=== PATIENT | female | born 1980 | race Hispanic/Latino ===

== ENCOUNTER 2017-04-28 09:15 | Observation (INO) | payer MEDICAID, OTHER ==
[2017-04-28 09:32] VITALS: TEMP 98; O2SAT 100
[2017-04-28] MEDS ORDERED: Iohexol 240 (50 ml) PO ONE (10:02)
[2017-04-28] MEDS ORDERED: Iohexol 240 (50 ml) ONE (10:11)
[2017-04-28] MEDS ORDERED: HYDROmorphone 0.5 mg/0.5 ml ISec ONE ×2 (10:29→11:54)
[2017-04-28 10:52] LABS: BASO # 0.1 K/uL (0.0-0.2); BASO % 0.9 % (0.0-2.0); EOS # 0.1 K/uL (0.0-0.7); HEMATOCRIT 39.9 % (34.0-47.0); LYMPH # 2.5 K/uL (1.0-4.3); LYMPH % 28.1 % (20.0-40.0); MEAN CELL VOLUME 84.7 fl (81.0-99.0); MEAN CORPUSCULAR HEMOGLOBIN 28.2 pg (27.0-31.0); MEAN CORPUSCULAR HGB CONC 33.3 g/dL (33.0-37.0); MEAN PLATELET VOLUME 8.8 fl (7.2-11.7); MONO # 0.6 K/uL (0.0-0.8); MONO % 6.3 % (0.0-10.0); NEUT # 5.8 K/uL (1.8-7.0); NEUT % 63.7 % (50.0-75.0); RED CELL DISTRIBUTION WIDTH 14.1 % (11.5-14.5); WHITE BLOOD COUNT 9.1 K/uL (4.8-10.8)
[2017-04-28 10:59] LABS: RBC URINE 2 /hpf (0-3); URINE BILIRUBIN NEGATIVE (NEGATIVE); URINE BLOOD NEGATIVE (NEGATIVE); URINE COLOR YELLOW (YELLOW); URINE GLUCOSE (UA) NEG (Normal); URINE KETONE NEGATIVE (NEGATIVE); URINE LEUKOCYTE ESTERASE NEG Leu/uL (Negative); URINE PROTEIN NEGATIVE (NEGATIVE); URINE UROBILINOGEN 0.2-1.0 mg/dL (0.2-1.0); WBC URINE 1 /hpf (0-5)
--- NOTE | 2017-04-28 11:01 | ED PDOC ---
HPI: Abdomen <Deepthi Dugan - Last Filed: 04/28/17 14:17> Chief Complaint (Provider): Abdominal pain History Per: Patient History/Exam Limitations: no limitations Onset/Duration Of Symptoms: Days (x2 weeks), Worse Since (x3 days) Quality Of Discomfort: Gas Associated Symptoms: Fever (subjective), Vomiting (persistent), Constipation. denies: Urinary Symptoms <Savanah Wilson - Last Filed: 04/28/17 15:35> Time Seen by Provider: 04/28/17 09:20 Chief Complaint (Nursing): Abdominal Pain Additional Complaint(s): Netta Ozuna is a 37 year old female, with a past medical history of hypertension, anxiety and depression, who presents to the emergency department complaining of abdominal bloating associated with gas, subjective fever, and persistent vomiting onset for 2 weeks. Patient reports being constipated and states symptoms have worsen with an abdominal pain radiating down the left leg in the last 3 days. She denies any urinary symptoms and reports morphine doesn' t work and needs something stronger for the pain before being examined. PMD: Zachariah Davis (Savanah Wilson) Past Medical History <Deepthi Dugan A - Last Filed: 04/28/17 14:17> Reviewed: Historical Data, Nursing Documentation, Vital Signs - Medical History PMH: Anxiety, Back Problems, Bipolar Disorder, Depression, Gastritis, Gall Bladder Disease (CHOLECYSTECTOMY), Hiatal Hernia, HTN (NOT ON MEDICATION), Sleep Apnea Denies: Diabetes, Hepatitis, HIV, Chronic Kidney Disease, Seizures, Sexually Transmitted Disease - Surgical History Surgical History: Cholecystectomy (2007), Endoscopy (6 MONTHS AGO) - Family History Family History: States: Unknown Family Hx - Social History Current smoker - smoking cessation education provided: Yes (Light smoker <10 cigarettes daily) Alcohol: Occasional (weekends) Drugs: Denies - Immunization History Hx Tetanus Toxoid Vaccination: No Hx Influenza Vaccination: No Hx Pneumococcal Vaccination: No <KatieSavanah Torres - Last Filed: 04/28/17 15:35> Vital Signs: Last Vital Signs Temp 98 F 04/28/17 09:28 Pulse 73 04/28/17 14:26 Resp 18 04/28/17 14:26 BP 124/84 04/28/17 14:26 Pulse Ox 100 04/28/17 14:26 - Home Medications Home Medications: Ambulatory Orders Medication Instructions Recorded ARIPiprazole [Abilify] 5 mg PO DAILY 06/22/15 Alprazolam [Xanax] 1 mg PO TID 06/28/15 Buspirone HCl [Buspirone HCl] 10 mg PO BID 06/28/15 Famotidine [Pepcid] 20 mg PO BID #20 tab 08/29/16 Naproxen [Naprosyn] 500 mg PO BID #20 tab 08/29/16 metroNIDAZOLE [Flagyl] 500 mg PO BID #14 tab 08/29/16 oxyCODONE/Acetaminophen [Percocet 1 tab PO QID PRN #15 tab 08/29/16 5/325 mg Tab] traMADol [Ultram] 50 mg PO Q8 #10 tab 10/22/16 Sulfamethoxazole/Trimethoprim 1 tab PO BID #14 tab 04/28/17 [Bactrim DS 800 mg-160 mg] - Allergies Allergies/Adverse Reactions: Allergies Allergy/AdvReac Type Severity Reaction Status Date / Time No Known Allergies Allergy Verified 04/28/17 09:28 Review of Systems ROS Statement: Except As Marked, All Systems Reviewed And Found Negative Constitutional: Positive for: Fever Gastrointestinal: Positive for: Vomiting, Abdominal Pain (radiating down to left leg), Constipation Genitourinary Female: Negative for: Dysuria, Frequency, Hematuria <Savanah Wilson Y - Last Filed: 04/28/17 15:35> Physical Exam - Reviewed Nursing Documentation Reviewed: Yes Vital Signs Reviewed: Yes - Physical Exam Appears: Positive for: Well, Non-toxic, No Acute Distress Head Exam: Positive for: ATRAUMATIC, NORMAL INSPECTION, NORMOCEPHALIC Skin: Positive for: Normal Color, Warm, Rash (abrasions on buttock, could be bug bites that were scratched or early MRSA? no cellulitis and no fluctuance/ abscess) Eye Exam: Positive for: EOMI, Normal appearance, PERRL ENT: Positive for: Normal ENT Inspection Neck: Positive for: Normal, Painless ROM, Supple Cardiovascular/Chest: Positive for: Regular Rate, Rhythm. Negative for: Murmur Respiratory: Positive for: Normal Breath Sounds. Negative for: Respiratory Distress Gastrointestinal/Abdominal: Positive for: Normal Exam, Bowel Sounds, Soft. Negative for: Tenderness, Mass, Distended, Guarding, Rebound, Hernia, Asicites Back: Positive for: Normal Inspection Extremity: Positive for: Normal ROM Neurologic/Psych: Positive for: Alert, Oriented <Savanah Wilson Y - Last Filed: 04/28/17 15:35> - Laboratory Results Result Diagrams: 04/28/17 10:20 04/28/17 11:43 <Deepthi Dugan - Last Filed: 04/28/17 14:17> - Laboratory Results Result Diagrams: 04/28/17 10:20 04/28/17 11:43 - ECG O2 Sat by Pulse Oximetry: 100 (RA) Pulse Ox Interpretation: Normal <Savanah Wilson Y - Last Filed: 04/28/17 15:35> Medical Decision Making <Deepthi Dugan - Last Filed: 04/28/17 14:17> <Savanah Wilson Y - Last Filed: 04/28/17 15:35> Medical Decision Makin Abdominal/Pelvis CT FINDINGS: LOWER THORAX: Unremarkable. LIVER: Mild hepatomegaly. No mass. Smooth contour. Normal attenuation. GALLBLADDER AND BILE DUCTS: Status post cholecystectomy. PANCREAS: Unremarkable. No gross lesion or ductal dilatation. SPLEEN: Unremarkable. ADRENALS: Unremarkable. No mass. KIDNEYS AND URETERS: Right upper pole 9 mm cortical cyst, unchanged from prior. No other renal mass. No calculus or hydronephrosis. VASCULATURE: Unremarkable. No aortic aneurysm. (Deepthi Dugan) Initial Impression: Initial Plan: --Abd Pelvis PO & IV Contrast [CT] --Beta-HCG, quantitative --Comp Metabolic panel --CBC w/ differential --Dilaudid 1mg IVP --Omnipaque 240 50 ml --Morphine 4 mg IV --Urine C&S --Urinalysis --reevaluation 1100 -Patient's test negative 1200 -Minimal abdominal tenderness diffuse. Buttocks area has multiple small excoriated bug bites. 1357 Abdominal/Pelvis CT FINDINGS: LOWER THORAX: Unremarkable. LIVER: Mild hepatomegaly. No mass. Smooth contour. Normal attenuation. GALLBLADDER AND BILE DUCTS: Status post cholecystectomy. PANCREAS: Unremarkable. No gross lesion or ductal dilatation. SPLEEN: Unremarkable. ADRENALS: Unremarkable. No mass. KIDNEYS AND URETERS: Right upper pole 9 mm cortical cyst, unchanged from prior. No other renal mass. No calculus or hydronephrosis. VASCULATURE: Unremarkable. No aortic aneurysm. BOWEL: Unremarkable. No obstruction. No gross mural thickening. APPENDIX: Normal appendix. PERITONEUM: Unremarkable. No free fluid. No free air. LYMPH NODES: Unremarkable. No enlarged lymph nodes. BLADDER: Nondistended REPRODUCTIVE: Normal uterus. BONES: No acute fracture. OTHER FINDINGS: None. IMPRESSION: No acute abnormality. Mild hepatomegaly. Status post cholecystectomy. Small stable right upper pole renal cortical cyst. Otherwise unremarkable. 1400 -Urine and bloodwork negative pt appears comfortable - patient tolerating PO and is ready for dischargew ith bactrim rx for possible early mrsa infection on buttock (see skin exam under PE) Scribe Attestation: Documented by Markel Toro, acting as a scribe for Savanah Wilson MD Provider Scribe Attestation: All medical record entries made by the Scribe were at my direction and personally dictated by me. I have reviewed the chart and agree that the record accurately reflects my personal performance of the history, physical exam, medical decision making, and the department course for this patient. I have also personally directed, reviewed, and agree with the discharge instructions and disposition. (Savanah Wilson) ED OBSERVATION <Deepthi Dugan - Last Filed: 04/28/17 14:17> Date of observation admission: 04/28/17 Time of observation admission: 10:04 <Savanah Wilson - Last Filed: 04/28/17 15:35> - Observation admission statement Patient is being placed in observation because:: Need for serial examinations to determine stability for disposition (Savanah Wilson) - Goals of Observation Goals of observation are:: Resolution of symptoms (Savanah Wilson) - Progress Note Progress Note: 04/28/17 11:10 Patient is awake, vitals are stable, but symptoms persist 04/28/17 12:40 Patient is awake, vitals are stable, but symptoms persist (Savanah Wilson) Disposition <Deepthi Dugan - Last Filed: 04/28/17 14:17> - Patient ED Disposition Is Patient to be Admitted: No Counseled Patient/Family Regarding: Studies Performed, Diagnosis, Need For Followup - Disposition Disposition: Routine/Home Disposition Time: 14:35 <Savanah Wilson - Last Filed: 04/28/17 15:35> - Clinical Impression Clinical Impression: Abdominal pain in female - Disposition Condition: IMPROVED
[2017-04-28] MEDS ORDERED: HYDROmorphone 0.5 mg/0.5 ml ISec IVP STA (11:46)
[2017-04-28 12:09] LABS: ALB/GLOB RATIO 1.2 (1.0-2.1); ALKALINE PHOSPHATASE 73 U/L (38-126); ALT/SGPT 31 U/L (9-52); AST/SGOT 30 U/L (14-36); BILIRUBIN,TOTAL 0.6 mg/dl (0.2-1.3); BLOOD UREA NITROGEN 5 mg/dl (7-17); CALCIUM 9.6 mg/dL (8.4-10.2); CARBON DIOXIDE 26 mmol/L (22-30); CHLORIDE 100 mmol/L (98-107); GFR AFRICAN-AMERICAN > 60; GLUCOSE,RANDOM 72 mg/dL (65-105); POTASSIUM 4.2 MMOL/L (3.6-5.0); SODIUM 139 mmol/l (132-148); TOTAL PROTEIN 8.3 G/DL (6.3-8.2)
[2017-04-28] MEDS ORDERED: Sodium Chloride 0.9% 50 ML IV ONE (13:10)
[2017-04-28] MEDS ORDERED: Iohexol 300 100 ML IJ ONE (13:10)
--- NOTE | 2017-04-28 13:59 | CT ---
PROCEDURE: CT Abdomen and Pelvis with contrast HISTORY: abdominal pain COMPARISON: 02/07/2016 TECHNIQUE: Contrast dose: 95 mL Omnipaque 300 Radiation dose: Total exam DLP = 1063.70 mGy-cm. This CT exam was performed using one or more of the following dose reduction techniques: Automated exposure control, adjustment of the mA and/or kV according to patient size, and/or use of iterative reconstruction technique. FINDINGS: LOWER THORAX: Unremarkable. LIVER: Mild hepatomegaly. No mass. Smooth contour. Normal attenuation. GALLBLADDER AND BILE DUCTS: Status post cholecystectomy. PANCREAS: Unremarkable. No gross lesion or ductal dilatation. SPLEEN: Unremarkable. ADRENALS: Unremarkable. No mass. KIDNEYS AND URETERS: Right upper pole 9 mm cortical cyst, unchanged from prior. No other renal mass. No calculus or hydronephrosis. VASCULATURE: Unremarkable. No aortic aneurysm. BOWEL: Unremarkable. No obstruction. No gross mural thickening. APPENDIX: Normal appendix. PERITONEUM: Unremarkable. No free fluid. No free air. LYMPH NODES: Unremarkable. No enlarged lymph nodes. BLADDER: Nondistended REPRODUCTIVE: Normal uterus. BONES: No acute fracture. OTHER FINDINGS: None. IMPRESSION: No acute abnormality. Mild hepatomegaly. Status post cholecystectomy. Small stable right upper pole renal cortical cyst. Otherwise unremarkable.
[2017-04-28 14:27] VITALS: BP 124/84; PULSE 73; RESP 18
== END 2017-04-28 14:32 | disposition home or self-care (01) ==
LOC: H.ER 09:15 → H.EROBSV 10:04
PROVIDERS: ADMIT Emergency Medicine; ATTEND Emergency Medicine
DX: R10.9 Unspecified abdominal pain (principal); F17.210 Nicotine dependence, cigarettes, uncomplicated; F31.9 Bipolar disorder, unspecified; K29.70 Gastritis, unspecified, without bleeding; K44.9 Diaphragmatic hernia without obstruction or gangrene; I10 Essential (primary) hypertension; F32.9 Major depressive disorder, single episode, unspecified; F41.9 Anxiety disorder, unspecified; K59.00 Constipation, unspecified; Z79.899 Other long term (current) drug therapy; Z90.49 Acquired absence of other specified parts of digestive tract; R14.0 Abdominal distension (gaseous); R50.9 Fever, unspecified; R16.0 Hepatomegaly, not elsewhere classified
CPT/HCPCS: 36415; 74177; 80053; 81003; 81025; 84702; 85025; 87086; 96374; 96376; 99284; G0378; J1170; Q9966; Q9967

== ENCOUNTER 2017-06-15 15:33 | Emergency (ER) | payer OTHER ==
[2017-06-15 15:52] VITALS: RESP 18
[2017-06-15] MEDS ORDERED: Sodium Chloride 0.9% 1,000 ML IV STA (16:10)
--- NOTE | 2017-06-15 16:12 | ED PDOC ---
HPI: Abdomen Time Seen by Provider: 06/15/17 15:56 Chief Complaint (Nursing): GI Problem Chief Complaint (Provider): nausea/vomiting History Per: Patient Additional Complaint(s): 37 yo female, presents to ED with c/o vomiting, diarrhea, tactile fever, throat pain, bodyaches x 5 days. no medications taken to alleviate symptoms thus far. Past Medical History Reviewed: Nursing Documentation, Vital Signs Vital Signs: Last Vital Signs Temp 97.5 F L 06/15/17 15:49 Pulse 87 06/15/17 15:49 Resp 18 06/15/17 15:49 BP 134/89 06/15/17 15:49 Pulse Ox 98 06/15/17 18:57 - Medical History PMH: Anxiety, Back Problems, Bipolar Disorder, Depression, Gastritis, Gall Bladder Disease (CHOLECYSTECTOMY), Hiatal Hernia, HTN (NOT ON MEDICATION), Sleep Apnea Denies: Diabetes, Hepatitis, HIV, Chronic Kidney Disease, Seizures, Sexually Transmitted Disease - Surgical History Surgical History: Cholecystectomy (2007), Endoscopy (6 MONTHS AGO) - Family History Family History: States: Unknown Family Hx - Living Arrangements Living Arrangements: With Family - Social History Current smoker - smoking cessation education provided: No Alcohol: Social Drugs: Denies - Immunization History Hx Tetanus Toxoid Vaccination: No Hx Influenza Vaccination: No Hx Pneumococcal Vaccination: No - Home Medications Home Medications: Ambulatory Orders Medication Instructions Recorded ARIPiprazole [Abilify] 5 mg PO DAILY 06/22/15 Alprazolam [Xanax] 1 mg PO TID 06/28/15 Buspirone HCl [Buspirone HCl] 10 mg PO BID 06/28/15 Famotidine [Pepcid] 20 mg PO BID #20 tab 08/29/16 Naproxen [Naprosyn] 500 mg PO BID #20 tab 08/29/16 metroNIDAZOLE [Flagyl] 500 mg PO BID #14 tab 08/29/16 oxyCODONE/Acetaminophen [Percocet 1 tab PO QID PRN #15 tab 08/29/16 5/325 mg Tab] traMADol [Ultram] 50 mg PO Q8 #10 tab 10/22/16 Sulfamethoxazole/Trimethoprim 1 tab PO BID #14 tab 04/28/17 [Bactrim DS 800 mg-160 mg] Ibuprofen [Motrin] 600 mg PO Q6 #20 tab 06/15/17 Ondansetron ODT [Zofran ODT] 4 mg PO Q6 PRN #10 odt 06/15/17 - Allergies Allergies/Adverse Reactions: Allergies Allergy/AdvReac Type Severity Reaction Status Date / Time No Known Allergies Allergy Verified 06/15/17 15:48 Review of Systems ROS Statement: Except As Marked, All Systems Reviewed And Found Negative Constitutional: Positive for: Weakness Gastrointestinal: Positive for: Nausea, Vomiting, Diarrhea Physical Exam - Reviewed Nursing Documentation Reviewed: Yes Vital Signs Reviewed: Yes - Physical Exam Appears: Positive for: Well, Non-toxic, No Acute Distress Head Exam: Positive for: ATRAUMATIC, NORMAL INSPECTION, NORMOCEPHALIC Skin: Positive for: Normal Color, Warm, DRY Eye Exam: Positive for: EOMI, Normal appearance, PERRL ENT: Positive for: Normal ENT Inspection Neck: Positive for: Normal, Painless ROM Cardiovascular/Chest: Positive for: Regular Rate, Rhythm Respiratory: Positive for: CNT, Normal Breath Sounds Gastrointestinal/Abdominal: Positive for: Normal Exam, Bowel Sounds, Soft Back: Positive for: Normal Inspection Extremity: Positive for: Normal ROM Neurologic/Psych: Positive for: Alert, Oriented - Laboratory Results Result Diagrams: 06/15/17 17:06 06/15/17 17:06 - ECG O2 Sat by Pulse Oximetry: 98 Medical Decision Making Medical Decision Making: IV access established and treatment initiated with IVF, Pepcid, Zofran Diagnostics ordered Labs resulted and reviewed with Pt who demonstrated full understanding Pt reports feeling well on re-eval. Stable for discharge home at this time Disposition - Clinical Impression Clinical Impression: Viral syndrome - Patient ED Disposition Is Patient to be Admitted: No - Disposition Disposition: Routine/Home Disposition Time: 18:59 Condition: STABLE Prescriptions: Ibuprofen [Motrin] 600 mg PO Q6 #20 tab Ondansetron ODT [Zofran ODT] 4 mg PO Q6 PRN #10 odt PRN Reason: Nausea/Vomiting Instructions: Viral Syndrome (ED) Forms: [employer] (Persian), [facility] ED School/Work Excuse
[2017-06-15 17:20] LABS: BASO # 0.1 K/uL (0.0-0.2); BASO % 0.7 % (0.0-2.0); EOS # 0.1 K/uL (0.0-0.7); EOS % 0.9 % (0.0-4.0); HEMATOCRIT 39.9 % (34.0-47.0); LYMPH # 2.2 K/uL (1.0-4.3); LYMPH % 26.8 % (20.0-40.0); MEAN CELL VOLUME 86.1 fl (81.0-99.0); MEAN CORPUSCULAR HEMOGLOBIN 29.1 pg (27.0-31.0); MEAN CORPUSCULAR HGB CONC 33.8 g/dL (33.0-37.0); MONO # 0.8 K/uL (0.0-0.8); MONO % 10.2 % (0.0-10.0); NEUT % 61.4 % (50.0-75.0); NRBC % 0.1 % (0.0-0.0); RED CELL DISTRIBUTION WIDTH 14.5 % (11.5-14.5); WHITE BLOOD COUNT 8.1 K/uL (4.8-10.8)
[2017-06-15 17:21] LABS: ALB/GLOB RATIO 1.2 (1.0-2.1); ALKALINE PHOSPHATASE 41 U/L (38-126); ALT/SGPT 28 U/L (9-52); AMYLASE 85 U/L (30-110); AST/SGOT 33 U/L (14-36); BILIRUBIN,TOTAL 0.4 mg/dl (0.2-1.3); BLOOD UREA NITROGEN 12 mg/dl (7-17); CALCIUM 9.5 mg/dL (8.4-10.2); CARBON DIOXIDE 26 mmol/L (22-30); CHLORIDE 104 mmol/L (98-107); GFR AFRICAN-AMERICAN > 60; GLUCOSE,RANDOM 98 mg/dL (65-105); LIPASE 234 U/L (23-300); SODIUM 140 mmol/l (132-148); TOTAL PROTEIN 7.7 G/DL (6.3-8.2)
[2017-06-15 17:24] LABS: URINE BACTERIA MOD (<OCC); URINE BILIRUBIN NEGATIVE (NEGATIVE); URINE BLOOD NEGATIVE (NEGATIVE); URINE COLOR YELLOW (YELLOW); URINE GLUCOSE (UA) NEG (Normal); URINE KETONE NEGATIVE (NEGATIVE); URINE LEUKOCYTE ESTERASE NEG Leu/uL (Negative); URINE PROTEIN 30 mg/dL (NEGATIVE); URINE UROBILINOGEN 0.2-1.0 mg/dL (0.2-1.0); WBC URINE 4 /hpf (0-5)
[2017-06-15 17:28] LABS: POTASSIUM 4.3 MMOL/L (3.6-5.0)
[2017-06-15 17:48] LABS: RBC URINE 3 /hpf (0-3)
[2017-06-15 19:21] VITALS: BP 128/78; PULSE 78; TEMP 98; O2SAT 99
--- NOTE | 2017-06-16 10:47 | RAD ---
HISTORY: COMPARISON: 12/05/2015. TECHNIQUE: Chest PA and lateral FINDINGS: LINES AND TUBES: None. LUNG AND PLEURA: The lungs are well inflated and clear. HEART AND MEDIASTINUM: The heart is not enlarged. The hilar and mediastinal contours are within normal limits. SKELETAL STRUCTURES: The bony structures are within normal limits for the patient's age. VISUALIZED UPPER ABDOMEN: Normal. OTHER FINDINGS: None. IMPRESSION: No active pulmonary disease.
== END 2017-06-15 19:21 | disposition home or self-care (01) ==
LOC: H.ER 15:33
DX: B34.9 Viral infection, unspecified (principal); F31.9 Bipolar disorder, unspecified; F41.9 Anxiety disorder, unspecified; I10 Essential (primary) hypertension
CPT/HCPCS: 71020; 80053; 81003; 81025; 82150; 83690; 85025; 87804; 96374; 96375; 99283; J2405; J7040

== ENCOUNTER 2018-12-09 09:06 | Emergency (ER) | payer MEDICAID, OTHER ==
[2018-12-09 09:12] VITALS: BMI 41.6
--- NOTE | 2018-12-09 10:35 | ED PDOC ---
HPI: Female Pain Time Seen by Provider: 12/09/18 09:22 Chief Complaint (Nursing): Female Genitourinary Chief Complaint (Provider): Female Genitourinary History Per: Patient History/Exam Limitations: no limitations Onset/Duration Of Symptoms: Days (2) Current Symptoms Are (Timing): Still Present Quality Of Discomfort: "Pain" Associated Symptoms: Urinary Symptoms. denies: Fever, Vomiting, Back Pain Additional Complaint(s): 38 y/o female presents to the ED complaining of frequent urination, blood in urine, and suprapubic pain since 2 days ago. Patient states shes been having urges to urinate and when she does she gets suprapubic pain. She also reports that her urine is cloudy with blood. Patient denies any back pain, fever, or vomiting. PMD: none provided Past Medical History Reviewed: Historical Data, Nursing Documentation, Vital Signs Vital Signs: Last Vital Signs Temp 97 F L 12/09/18 09:11 Pulse 84 12/09/18 09:11 Resp 18 12/09/18 09:11 BP 103/75 12/09/18 09:11 Pulse Ox 97 12/09/18 09:11 - Medical History PMH: Anxiety, Back Problems, Bipolar Disorder, Depression, Gastritis, Gall Bladder Disease (CHOLECYSTECTOMY), Hiatal Hernia, HTN (NOT ON MEDICATION), Sleep Apnea Denies: Diabetes, Hepatitis, HIV, Chronic Kidney Disease, Seizures, Sexually Transmitted Disease - Surgical History Surgical History: Cholecystectomy (2007), Endoscopy - Family History Family History: States: Unknown Family Hx - Immunization History Hx Tetanus Toxoid Vaccination: No Hx Influenza Vaccination: No Hx Pneumococcal Vaccination: No - Home Medications Home Medications: Ambulatory Orders Medication Instructions Recorded ALPRAZolam [Xanax] 1 mg PO TID 07/28/17 busPIRone [Buspar] 10 mg PO BID 07/28/17 Ibuprofen [Motrin Tab] 600 mg PO Q8 #30 tab 02/13/18 Nitrofurantoin Macrocrystals 100 mg PO BID #14 cap 12/09/18 [Macrobid] Phenazopyridine HCl [Pyridium] 100 mg PO TID #9 tablet 12/09/18 - Allergies Allergies/Adverse Reactions: Allergies Allergy/AdvReac Type Severity Reaction Status Date / Time No Known Allergies Allergy Verified 12/09/18 09:43 Review of Systems ROS Statement: Except As Marked, All Systems Reviewed And Found Negative Constitutional: Negative for: Fever Gastrointestinal: Positive for: Abdominal Pain. Negative for: Nausea, Vomiting, Diarrhea Genitourinary Female: Positive for: Dysuria, Frequency, Hematuria Musculoskeletal: Negative for: Back Pain Physical Exam - Reviewed Nursing Documentation Reviewed: Yes Vital Signs Reviewed: Yes - Physical Exam Appears: Positive for: Non-toxic, No Acute Distress Head Exam: Positive for: ATRAUMATIC, NORMAL INSPECTION, NORMOCEPHALIC Skin: Positive for: Normal Color, Warm, DRY Eye Exam: Positive for: EOMI, Normal appearance, PERRL ENT: Positive for: Normal ENT Inspection Neck: Positive for: Normal, Painless ROM, Supple Cardiovascular/Chest: Positive for: Regular Rate, Rhythm Respiratory: Positive for: Normal Breath Sounds. Negative for: Respiratory Distress Gastrointestinal/Abdominal: Positive for: Normal Exam, Soft. Negative for: Tenderness Back: Positive for: Normal Inspection Extremity: Positive for: Normal ROM Neurological/Psych: Positive for: Awake, Alert, Oriented (x3) - ECG O2 Sat by Pulse Oximetry: 97 - Progress Re-evaluation Time: 11:00 Condition: Re-examined, Improved Medical Decision Making Medical Decision Making: Time:1005 Initial Impression: Complaining about dysuria and suprapubic pain Initial Plan: -Urine Culture -Phenazopyridine 200mg PO showed negative. Urine was sent for culture and urine showed blood and leukocytes. Patient will be send home for UTI and will be prescribed antibiotics. Scribe Attestation: Documented by Era Plunkett, acting as a scribe Deepthi Baumann Provider Scribe Attestation: All medical record entries made by the Scribe were at my direction and personally dictated by me. I have reviewed the chart and agree that the record accurately reflects my personal performance of the history, physical exam, medical decision making, and the department course for this patient. I have also personally directed, reviewed, and agree with the discharge instructions and disposition. Disposition - Clinical Impression Clinical Impression: UTI (urinary tract infection) - Patient ED Disposition Is Patient to be Admitted: No Doctor Will See Patient In The: Office Counseled Patient/Family Regarding: Studies Performed, Diagnosis, Need For Followup - Disposition Referrals: Ronda Bennett MD [Family Provider] - Disposition: Routine/Home Disposition Time: 11:01 Condition: GOOD Additional Instructions: FRANCISCO LUI, thank you for letting us take care of you today. Your provider was Deepthi Dugan MD and you were treated for BLOOD IN URINE. The emergency medical care you received today was directed at your acute symptoms. If you were prescribed any medication, please fill it and take as directed. It may take several days for your symptoms to resolve. Return to the Emergency Department if your symptoms worsen, do not improve, or if you have any other problems. Please contact your doctor or call one of the physicians/clinics you have been referred to that are listed on the Patient Visit Information form that is included in your discharge packet. Bring any paperwork you were given at discharge with you along with any medications you are taking to your follow up visit. Our treatment cannot replace ongoing medical care by a primary care provider outside of the emergency department. Thank you for allowing the [facility] team to be part of your care today. If you had an X-Ray or CT scan: A Radiologist will review the ED reading if any change in treatment is needed we will contact you. Prescriptions: Nitrofurantoin Macrocrystals [Macrobid] 100 mg PO BID #14 cap Phenazopyridine HCl [Pyridium] 100 mg PO TID #9 tablet Instructions: Urinary Tract Infection, Adult (DC)
[2018-12-09 11:26] VITALS: BP 134/68; PULSE 77; RESP 17; TEMP 98.1; O2SAT 100
== END 2018-12-09 11:24 | disposition home or self-care (01) ==
LOC: H.ER 09:06
DX: N39.0 Urinary tract infection, site not specified (principal); F31.9 Bipolar disorder, unspecified; F41.9 Anxiety disorder, unspecified; I10 Essential (primary) hypertension

== ENCOUNTER 2019-01-13 08:58 | Emergency (ER) | payer MEDICAID ==
[2019-01-13 09:29] VITALS: BMI 40.6
[2019-01-13 10:05] VITALS: O2SAT 98
[2019-01-13 10:20] LABS: BASO % 0.5 % (0.0-2.0); EOS # 0.1 K/uL (0.0-0.7); EOS % 2.2 % (0.0-4.0); HEMOGLOBIN 12.6 g/dL (12.0-16.0); LYMPH # 2.1 K/uL (1.0-4.3); LYMPH % 36.8 % (20.0-40.0); MEAN CELL VOLUME 85.2 fl (81.0-99.0); MEAN CORPUSCULAR HEMOGLOBIN 27.7 pg (27.0-31.0); MEAN CORPUSCULAR HGB CONC 32.6 g/dL (33.0-37.0); MEAN PLATELET VOLUME 9.6 fl (7.2-11.7); MONO # 0.4 K/uL (0.0-0.8); MONO % 7.7 % (0.0-10.0); NEUT % 52.8 % (50.0-75.0); NRBC % 0.1 % (0.0-0.0); RBC 4.54 Mil/uL (3.80-5.20); RED CELL DISTRIBUTION WIDTH 14.7 % (11.5-14.5); WHITE BLOOD COUNT 5.7 K/uL (4.8-10.8)
[2019-01-13 10:36] LABS: ALB/GLOB RATIO 1.2 (1.0-2.1); ALT/SGPT 42 U/L (9-52); AST/SGOT 49 U/L (14-36); BLOOD UREA NITROGEN 7 mg/dl (7-17); CALCIUM 8.9 mg/dL (8.4-10.2); GFR NON-AFRICAN AMERICAN > 60
[2019-01-13 11:01] LABS: BARBITURATES, UR NEGATIVE (NEGATIVE); BENZODIAZEPINES, UR POSITIVE (NEGATIVE); OPIATES, UR NEGATIVE (NEGATIVE); PHENCYCLIDINE, UR NEGATIVE (NEGATIVE)
--- NOTE | 2019-01-13 13:05 | ED PDOC ---
HPI: Skin/Bite Injury Time Seen by Provider: 01/13/19 09:45 Chief Complaint (Nursing): Abnormal Skin Integrity Chief Complaint (Provider): facial rash, fatigue History Per: Patient History/Exam Limitations: no limitations Onset/Duration Of Symptoms: Days (1), Sudden Onset Current Symptoms Are (Timing): Better Location Of Injury: Right: Face (rash), Left: Face Severity: Mild Additional Complaint(s): 38yo female states noticed rash to b/l face yesterday, nonpruritic, nonvesicular, red/ blotchy but non urticarial, does not involve eyes or mouth. Did not take any medications, awoke this morning very fatigued but denies fever, headache, focal weakness, dental pain, neck pain, chest pain, SOB or dizziness. LMP few weeks ago, regular, last 3-4 days. Past Medical History Reviewed: Historical Data, Nursing Documentation, Vital Signs Vital Signs: Last Vital Signs Temp 97.8 F 01/13/19 09:28 Pulse 96 H 01/13/19 09:28 Resp 17 01/13/19 09:28 BP 109/80 01/13/19 09:28 Pulse Ox 98 01/13/19 10:03 Primary Care Provider: FAMILY PROVIDER,NO - Medical History PMH: Anxiety, Back Problems, Bipolar Disorder, Depression, Gastritis, Gall Bladd er Disease (CHOLECYSTECTOMY), Hiatal Hernia, HTN (NOT ON MEDICATION), Sleep Apnea Denies: Diabetes, Hepatitis, HIV, Chronic Kidney Disease, Seizures, Sexually Transmitted Disease - Surgical History Surgical History: Cholecystectomy (2007), Endoscopy - Family History Family History: States: Unknown Family Hx - Immunization History Hx Tetanus Toxoid Vaccination: No Hx Influenza Vaccination: No Hx Pneumococcal Vaccination: No - Home Medications Home Medications: Ambulatory Orders Medication Instructions Recorded ALPRAZolam [Xanax] 1 mg PO TID 07/28/17 busPIRone [Buspar] 10 mg PO BID 07/28/17 Ibuprofen [Motrin Tab] 600 mg PO Q8 #30 tab 02/13/18 Nitrofurantoin Macrocrystals 100 mg PO BID #14 cap 12/09/18 [Macrobid] Phenazopyridine HCl [Pyridium] 100 mg PO TID #9 tablet 12/09/18 Mupirocin 2% Cream [Bactroban 30 applic TOP BID #1 tube 01/13/19 Cream] - Allergies Allergies/Adverse Reactions: Allergies Allergy/AdvReac Type Severity Reaction Status Date / Time No Known Allergies Allergy Verified 01/13/19 10:02 Review of Systems ROS Statement: Except As Marked, All Systems Reviewed And Found Negative Constitutional: Negative for: Fever Eyes: Negative for: Vision Change, Conjunctivae Inflammation, Eyelid Inflammatio n, Redness ENT: Negative for: Ear Pain, Ear Discharge, Throat Pain Respiratory: Negative for: Cough Gastrointestinal: Negative for: Abdominal Pain Genitourinary Female: Negative for: Dysuria Musculoskeletal: Negative for: Neck Pain, Back Pain, Leg Pain Skin: Positive for: Rash. Negative for: Lesions Neurological: Positive for: Weakness (generalized). Negative for: Seizures, Headache, Dizziness Psych: Negative for: Suicidal ideation Physical Exam - Reviewed Nursing Documentation Reviewed: Yes Vital Signs Reviewed: Yes - Physical Exam Appears: Positive for: Well, Non-toxic, No Acute Distress Head Exam: Positive for: ATRAUMATIC, NORMAL INSPECTION, NORMOCEPHALIC Skin: Positive for: Warm, Rash (spotty rash to R>L anterior temporal facial region, nonvesicular no urticarial, nontender) Eye Exam: Positive for: EOMI, Normal appearance, PERRL ENT: Positive for: Normal ENT Inspection Neck: Positive for: Normal, Painless ROM Cardiovascular/Chest: Positive for: Regular Rate, Rhythm Respiratory: Positive for: CNT, Normal Breath Sounds Pulses-Radial (L): 3+/4+ Pulses-Radial (R): 3+/4+ Gastrointestinal/Abdominal: Positive for: Soft. Negative for: Tenderness Back: Positive for: Normal Inspection Extremity: Positive for: Normal ROM Neurological/Psych: Positive for: Awake, Alert, Normal Tone. Negative for: Motor/Sensory Deficits - Laboratory Results Result Diagrams: 01/13/19 10:00 01/13/19 10:00 Lab Results: Total Bilirubin 0.4 mg/dl (0.2-1.3) 01/13/19 10:00 AST 49 U/L (14-36) H D 01/13/19 10:00 ALT 42 U/L (9-52) 01/13/19 10:00 Alkaline Phosphatase 49 U/L (38-126) 01/13/19 10:00 Total Protein 7.2 G/DL (6.3-8.2) 01/13/19 10:00 Albumin 4.0 g/dL (3.5-5.0) 01/13/19 10:00 Globulin 3.3 gm/dL (2.2-3.9) 01/13/19 10:00 Albumin/Globulin Ratio 1.2 (1.0-2.1) 01/13/19 10:00 - ECG O2 Sat by Pulse Oximetry: 98 Medical Decision Making Medical Decision Making: utox showed amphetamines and benzos, pt admits to taking xanax, she denies knowledge of amphetamines labs otherwise unremarkable and facial rash trial bactroban followup PMD Disposition - Clinical Impression Clinical Impression: Rash, Fatigue - Patient ED Disposition Is Patient to be Admitted: No Counseled Patient/Family Regarding: Studies Performed, Diagnosis, Need For Followup, Rx Given - Disposition Referrals: Irving London MD [Medical Doctor] - Disposition: Routine/Home Disposition Time: 12:05 Condition: STABLE Additional Instructions: Followup with PMD, return to ER for any worse or new symptoms. Use antibiotic ointment only if rash persists or returns. Prescriptions: Mupirocin 2% Cream [Bactroban Cream] 30 applic TOP BID #1 tube Instructions: Skin Rash (DC), Fatigue Forms: [employer] ([place])
[2019-01-13 13:37] VITALS: BP 110/70; PULSE 78; RESP 20; TEMP 98.6
== END 2019-01-13 13:37 | disposition home or self-care (01) ==
LOC: H.ER 08:58
DX: R21 Rash and other nonspecific skin eruption (principal); R53.83 Other fatigue; F31.9 Bipolar disorder, unspecified; F41.9 Anxiety disorder, unspecified; I10 Essential (primary) hypertension